=== PATIENT | female | born 1955 | race American Indian/Alaskan Native ===

== ENCOUNTER 2016-09-30 20:08 | Emergency (ER) | payer MEDICAID ==
[2016-09-30 20:35] LABS: Basophils % (Auto) 0.6 % (0.0-1.8); Eosinophils % (Auto) 3.6 % (0.0-4.3); Hematocrit 37.1 % (30.3-42.9); Hemoglobin 12.2 gm/dl (10.1-14.3); Mean Corpuscular HGB Conc 33 % (30-34); Mean Corpuscular Hemoglobin 28 pg (28-32); Mean Corpuscular Volume 86 fl (79-97); Platelet Count 229 K/mm3 (140-440); Red Blood Count 4.32 M/mm3 (3.65-5.03); Red Cell Distribution Width 14.9 % (13.2-15.2); White Blood Count 4.7 K/mm3 (4.5-11.0)
[2016-09-30 20:55] LABS: Anion Gap 18 mmol/L; BUN/Creatinine Ratio 13.33; Blood Urea Nitrogen 12 mg/dL (7-17); Calcium 9.1 mg/dL (8.4-10.2); Carbon Dioxide 24 mmol/L (22-30); Chloride 103.3 mmol/L (98-107); Glucose 108 mg/dL (65-100); Potassium 3.6 mmol/L (3.6-5.0); Sodium 142 mmol/L (137-145)
[2016-09-30] MEDS ORDERED: PROVENTIL IH ONE (21:30)
[2016-09-30] MEDS ORDERED: ATROVENT IH ONE (21:30)
[2016-09-30] MEDS ORDERED: TESSALON PERLES PO ONE (21:30)
--- NOTE | 2016-09-30 21:36 | Emergency Department Report ---
HPI - General Chief Complaint: Dyspnea/Respdistress Time Seen by Provider: 09/30/16 21:24 - HPI HPI: Room 18 The patient is a 61-year-old female presenting with a chief complaint of cough and congestion. The patient states for 1 week she has had a cough that was initially productive of yellow sputum. The patient states today the cough has become nonproductive. Shortness of breath and chest congestion. Patient denies chest pain of any type states she feels congested and more so when she lies down. Patient denies rhinorrhea but admits to subjective fever. Location: [see above] Duration: 1 Week Quality: Congestion Severity: Moderate Modifying factors: [see above] Context: [see above] Mode of transportation: [not driving] ED Past Medical Hx - Past Medical History Previous Medical History?: Yes Hx Hypertension: Yes Hx Diabetes: Yes Additional medical history: high cholesterol. disc problems. - Surgical History Past Surgical History?: Yes Hx Cholecystectomy: Yes Additional Surgical History: tubal ligation - Family History Family history: no significant - Social History Smoking Status: Never Smoker Substance Use Type: None - Medications Home Medications: Home Medications Medication Instructions Recorded Confirmed Last Taken Type HYDROcodone/ACETAMINOPHEN [[place]man 1 each PO Q6HR PRN #20 tablet 06/08/13 Unknown Rx 5/325 Tablet] Meloxicam [Mobic] 15 mg PO DAILY #30 tablet 06/08/13 Unknown Rx Metaxalone [Skelaxin] 800 mg PO TID #20 tablet 06/08/13 Unknown Rx ALBUTEROL Inhaler [Proair] 2 puff IH QID PRN #1 inhalation 09/30/16 Unknown Rx Azithromycin [Zithromax Z-SANTOSH] 0 mg PO DAILY #6 tab 09/30/16 Unknown Rx Benzonatate [Tessalon Perles] 100 mg PO Q8HR #30 capsule 09/30/16 Unknown Rx ED Review of Systems ROS: Stated complaint: DIFFICULTY IN BREATHING, CHEST TIGHTNESS Other details as noted in HPI Comment: All other systems reviewed and negative Constitutional: fever (subjective) Eyes: denies: eye pain, eye discharge, vision change ENT: congestion Respiratory: cough, shortness of breath Cardiovascular: denies: chest pain, palpitations Endocrine: no symptoms reported Gastrointestinal: denies: abdominal pain, nausea, diarrhea Genitourinary: denies: urgency, dysuria, discharge Musculoskeletal: denies: back pain, joint swelling, arthralgia Skin: denies: rash, lesions Neurological: denies: headache, weakness, paresthesias Psychiatric: denies: anxiety, depression Hematological/Lymphatic: denies: easy bleeding, easy bruising Physical Exam - Physical Exam Vital Signs: Vital Signs 09/30/16 20:14 Temperature 98.3 F Pulse Rate 88 Blood Pressure 153/88 O2 Sat by Pulse 97 Oximetry Physical Exam: GENERAL: The patient is well-developed well-nourished female lying on stretcher not appearing to be in acute distress. [] HEENT: Normocephalic. Atraumatic. Extraocular motions are intact. Patient has moist mucous membranes. NECK: Supple. No meningitic signs are noted. Trachea midline CHEST/LUNGS: Clear to auscultation. There is no respiratory distress noted. HEART/CARDIOVASCULAR: Regular. There is no tachycardia. There is no gallop rub or murmur. ABDOMEN: Abdomen is soft, nontender. Patient has normal bowel sounds. There is no abdominal distention. SKIN: There is no rash. There is no edema. There is no diaphoresis. NEURO: The patient is awake, alert, and oriented. The patient is cooperative. The patient has normal speech MUSCULOSKELETAL: There is no evidence of acute injury. ED Course Vital Signs 09/30/16 20:14 Temperature 98.3 F Pulse Rate 88 Blood Pressure 153/88 O2 Sat by Pulse 97 Oximetry - Reevaluation(s) Reevaluation #1: 10/01/16 00:12 Patient states she feels improved ED Medical Decision Making - Lab Data Result diagrams: 09/30/16 20:28 09/30/16 20:27 Laboratory Tests 09/30/16 09/30/16 20:27 20:28 WBC 4.7 RBC 4.32 Hgb 12.2 Hct 37.1 MCV 86 MCH 28 MCHC 33 RDW 14.9 Plt Count 229 Lymph % (Auto) 38.5 H Wilcox % (Auto) 11.5 H Eos % (Auto) 3.6 Baso % (Auto) 0.6 Lymph # 1.8 Wilcox # 0.5 Eos # 0.2 Baso # 0.0 Seg Neutrophils % 45.8 Seg Neutrophils # 2.1 Sodium 142 Potassium 3.6 Chloride 103.3 Carbon Dioxide 24 Anion Gap 18 BUN 12 Creatinine 0.9 Estimated GFR > 60 BUN/Creatinine Ratio 13.33 Glucose 108 H Calcium 9.1 Troponin T < 0.010 Laboratory Tests 09/30/16 09/30/16 09/30/16 20:27 20:28 22:10 WBC 4.7 RBC 4.32 Hgb 12.2 Hct 37.1 MCV 86 MCH 28 MCHC 33 RDW 14.9 Plt Count 229 Lymph % (Auto) 38.5 H Wilcox % (Auto) 11.5 H Eos % (Auto) 3.6 Baso % (Auto) 0.6 Lymph # 1.8 Wilcox # 0.5 Eos # 0.2 Baso # 0.0 Seg Neutrophils % 45.8 Seg Neutrophils # 2.1 Sodium 142 Potassium 3.6 Chloride 103.3 Carbon Dioxide 24 Anion Gap 18 BUN 12 Creatinine 0.9 Estimated GFR > 60 BUN/Creatinine Ratio 13.33 Glucose 108 H Calcium 9.1 Troponin T < 0.010 NT-Pro-B Natriuret Pep 70.12 Laboratory Tests 09/30/16 09/30/16 09/30/16 20:27 20:28 22:10 WBC 4.7 RBC 4.32 Hgb 12.2 Hct 37.1 MCV 86 MCH 28 MCHC 33 RDW 14.9 Plt Count 229 Lymph % (Auto) 38.5 H Wilcox % (Auto) 11.5 H Eos % (Auto) 3.6 Baso % (Auto) 0.6 Lymph # 1.8 Wilcox # 0.5 Eos # 0.2 Baso # 0.0 Seg Neutrophils % 45.8 Seg Neutrophils # 2.1 Sodium 142 Potassium 3.6 Chloride 103.3 Carbon Dioxide 24 Anion Gap 18 BUN 12 Creatinine 0.9 Estimated GFR > 60 BUN/Creatinine Ratio 13.33 Glucose 108 H Calcium 9.1 Troponin T < 0.010 NT-Pro-B Natriuret Pep 70.12 09/30/16 23:16 WBC RBC Hgb Hct MCV MCH MCHC RDW Plt Count Lymph % (Auto) Wilcox % (Auto) Eos % (Auto) Baso % (Auto) Lymph # Wilcox # Eos # Baso # Seg Neutrophils % Seg Neutrophils # Sodium Potassium Chloride Carbon Dioxide Anion Gap BUN Creatinine Estimated GFR BUN/Creatinine Ratio Glucose Calcium Troponin T < 0.010 NT-Pro-B Natriuret Pep Influenza negative - EKG Data -: EKG Interpreted by Wy EKG shows normal: sinus rhythm Rate: normal - EKG Data When compared to previous EKG there are: previous EKG unavailable Interpretation: nonspecific ST-T wave lily (t wave inversion in lead) - Radiology Data Radiology results: image reviewed (chest x-ray) interpreted by me: Chest x-ray-no focal infiltrates, no pneumothorax - Differential Diagnosis pneumonia, pneumothorax, bronchitis Critical care attestation.: If time is entered above; I have spent that time in minutes in the direct care of this critically ill patient, excluding procedure time. ED Disposition Clinical Impression: Acute bronchitis, Chest congestion Disposition: DISCHARGED TO HOME OR SELFCARE Is pt being admited?: No Does the pt Need Aspirin: No Condition: Stable Instructions: Acute Bronchitis (ED) Additional Instructions: Return to the emergency department immediately should you develop worsening symptoms, fever, inability to tolerate food or liquid or any other concerns. Prescriptions: ALBUTEROL Inhaler [Proair] 2 puff IH QID PRN #1 inhalation PRN Reason: Shortness Of Breath Azithromycin [Zithromax Z-SANTOSH] 0 mg PO DAILY #6 tab Benzonatate [Tessalon Perles] 100 mg PO Q8HR #30 capsule Referrals: PRIMARY CARE, [Referring] - 3-5 Days Time of Disposition: 00:12
[2016-10-01 00:32] VITALS: BP 165/87
--- NOTE | 2016-10-01 08:18 | XRay Report ---
CHEST 2 VIEWS INDICATION: Cough, congestion. COMPARISON: 11/09/2013. FINDINGS: PA and lateral chest radiographs demonstrate normal cardiomediastinal silhouette. Clear lungs. Stable bony degenerative changes. Possible cholecystectomy clips. CONCLUSION: No acute disease in the chest. Thank you for the opportunity to participate in this patient's care.
== END 2016-10-01 00:30 | disposition home or self-care (01) ==
LOC: ED 20:08
DX: J20.9 Acute bronchitis, unspecified (principal); R07.9 Chest pain, unspecified; I10 Essential (primary) hypertension; E11.9 Type 2 diabetes mellitus without complications; E78.00 Pure hypercholesterolemia, unspecified
CPT/HCPCS: 36415; 71020; 80048; 83880; 84484; 85025; 87400; 93005; 93010; 94640

== ENCOUNTER 2017-06-28 18:00 | Emergency (ER) | payer MEDICAID ==
[2017-06-28 19:37] VITALS: BP 149/82
[2017-06-28 22:53] LABS: Hematocrit 38.6 % (30.3-42.9); Hemoglobin 12.9 gm/dl (10.1-14.3); Mean Corpuscular HGB Conc 33 % (30-34); Mean Corpuscular Hemoglobin 29 pg (28-32); Mean Corpuscular Volume 87 fl (79-97); Platelet Count 231 K/mm3 (140-440); Red Blood Count 4.44 M/mm3 (3.65-5.03); Red Cell Distribution Width 14.5 % (13.2-15.2)
[2017-06-28 23:13] LABS: BUN/Creatinine Ratio 22; Blood Urea Nitrogen 13 mg/dL (7-17); Calcium 8.8 mg/dL (8.4-10.2); Hemolysis Index 43
[2017-06-28 23:23] LABS: Anisocytosis Few; Basophils % (Manual) 0 % (0.0-1.8); Eosinophils % (Manual) 0 % (0.0-4.3); Total Cells Counted 100
== END 2017-06-29 09:00 | disposition left against medical advice (07) ==
LOC: ED 18:00
DX: R53.1 Weakness (principal); Z53.21 Procedure and treatment not carried out due to patient leaving prior to being seen by health care provider
CPT/HCPCS: 36415; 80048; 85007; 85025

== ENCOUNTER 2017-08-23 08:28 | Outpatient (CLI) | payer MEDICAID ==
--- NOTE | 2017-08-23 12:19 | Ultrasound Report ---
ULTRASOUND ABDOMEN COMPLETE: TECHNIQUE: Transabdominal ultrasound with color Doppler interrogation. HISTORY: Leukopenia. COMPARISON: none. FINDINGS: LIVER: Diffuse fatty infiltration of the liver is noted. No focal mass or surface nodularity is detected.. BILIARY SYSTEM: The gallbladder has been surgically removed. No biliary dilatation is identified. PANCREAS: Normal. SPLEEN: Normal. KIDNEYS: Normal. AORTA/IVC: Normal. ASCITES: None. IMPRESSION: Fatty infiltration of the liver. Cholecystectomy.
== END 2017-08-23 08:29 | disposition home or self-care (01) ==
LOC: US 08:28
PROVIDERS: ATTEND Internal Medicine Hematology & Oncology
DX: K76.0 Fatty (change of) liver, not elsewhere classified (principal); D72.819 Decreased white blood cell count, unspecified; Z90.49 Acquired absence of other specified parts of digestive tract
CPT/HCPCS: 76700